=== PATIENT | female | born 1945 | race Caucasian/White ===

== ENCOUNTER 2022-08-27 10:24 | Emergency (ER) | payer MEDICARE ==
[2022-08-27] MEDS ORDERED: Methocarbamol 500 MG Tab PO ONE (11:27)
== END 2022-08-27 12:22 | disposition home or self-care (01) ==
LOC: JP.ED 10:24
DX: M62.830 Muscle spasm of back (principal); I10 Essential (primary) hypertension; Z86.16 Personal history of COVID-19; Z79.899 Other long term (current) drug therapy; Z88.6 Allergy status to analgesic agent; Z88.8 Allergy status to other drugs, medicaments and biological substances
CPT/HCPCS: 99283; A9270

== ENCOUNTER 2023-10-03 08:34 | Emergency (ER) | payer MEDICARE ==
[2023-10-03] MEDS: Acetaminophen 500 MG Tab PO ONE (08:55)
== END 2023-10-03 10:10 | disposition home or self-care (01) ==
LOC: JP.ED 08:34
DX: M17.11 Unilateral primary osteoarthritis, right knee (principal); I10 Essential (primary) hypertension; Z79.899 Other long term (current) drug therapy; Z88.6 Allergy status to analgesic agent
CPT/HCPCS: 73560; 99283; A9270

== ENCOUNTER 2024-03-25 06:55 | Inpatient (IN) | payer MEDICARE ==
[2024-03-25] MEDS ORDERED: Bupivacaine 0.5% 30 ML SDV ONE (07:20)
[2024-03-25] MEDS ORDERED: Glycopyrrolate 0.2 MG/ML 5 ML MDV ONE (07:22)
[2024-03-25] MEDS ORDERED: Neostigmine Methylsulfate 10 MG/10 ML MDV ONE (07:22)
[2024-03-25] MEDS ORDERED: Propofol 200 MG/20 ML SDV ONE (07:22)
[2024-03-25] MEDS ORDERED: Dexamethasone 4 MG/ML SDV ONE (07:22)
[2024-03-25] MEDS ORDERED: Rocuronium 50 MG/5 ML Vial ONE (07:22)
[2024-03-25] MEDS ORDERED: Ondansetron 4 MG/2 ML SDV ONE (07:22)
[2024-03-25] MEDS ORDERED: Succinylcholine 200 MG/10 ML MDV ONE (07:22)
[2024-03-25 07:23] LABS: HEMATOCRIT 28.4 % (34.3-46.0); HEMOGLOBIN 9.6 g/dL (11.2-15.5); MEAN CORPUSCULAR HEMOGLOBIN 37.2 pg (31.6-35.5); MEAN CORPUSCULAR HGB CONC 33.8 g/dL (31.6-35.5); MEAN CORPUSCULAR VOLUME 110.1 fL (81.4-99.0); RED BLOOD CELL COUNT 2.58 M/uL (3.77-5.24)
[2024-03-25] MEDS ORDERED: fentaNYL 250 MCG/5 ML SDV ONE (07:23)
[2024-03-25 07:48] LABS: A/G RATIO 1.1 (1.2-2.2); ALANINE AMINOTRANSFERASE,ALT 18 U/L (12-78); ALKALINE PHOSPHATASE 127 U/L (46-116); ANION GAP 11.5 mmol/L (5.0-14.0); ASPARTATE AMNIOTRANSFERASE,AST 15 U/L (15-37); BILIRUBIN TOTAL 0.6 mg/dL (0.2-1.0); BLOOD UREA NITROGEN,BUN 32 mg/dL (7-18); CARBON DIOXIDE,CO2 25 mmol/L (21-32); CHLORIDE,CL 105 mmol/L (100-108); CREATININE 1.6 mg/dL (0.6-1.0); EST CRCL DRUG DOSING (CG) 24.62 mL/min; ESTIMATED GFR 33 mL/min (>60); GLUCOSE RANDOM 105 mg/dL (74-106); POTASSIUM,K 4.2 mmol/L (3.6-5.2); PROTEIN TOTAL,TP 7.8 g/dL (6.4-8.2); SODIUM,NA 141 mmol/L (140-148)
[2024-03-25] MEDS: Lactated Ringers 1,000 ML IV SCH (08:14)
[2024-03-25] MEDS: Nozin Nasal Sanitizer NASBOTH ONE (08:14)
[2024-03-25] MEDS ORDERED: Ondansetron 4 MG/2 ML SDV IVPUSH PRN (09:24)
[2024-03-25] MEDS ORDERED: Ketorolac 15 MG/ML SDV IVPUSH PRN (09:24)
[2024-03-25] MEDS ORDERED: Albuterol 6.7 GM Inhaler INH PRN (09:28)
[2024-03-25] MEDS ORDERED: ceFAZolin 2 GM in Sodium Chloride 0.9% 50 ML IV SCH (09:30)
[2024-03-25] MEDS: ceFAZolin 2 GM in Premix Bag 1 BAG IV ONE (09:35)
[2024-03-25] MEDS ORDERED: fentaNYL 100 MCG/2 ML SDV ONE (11:20)
[2024-03-25] MEDS: Sodium Chloride 0.9% 1,000 ML IV SCH (13:06)
[2024-03-25] MEDS: Acetaminophen 325 MG Tab PO SCH (13:57)
[2024-03-25] MEDS ORDERED: ceFAZolin 2 GM in Premix Bag 1 BAG IV SCH (18:00)
[2024-03-25] MEDS: ceFAZolin 2 GM in Premix Bag 1 BAG IV SCH (21:01)
[2024-03-25] MEDS: Nozin Nasal Sanitizer NASBOTH SCH (21:01)
[2024-03-26] MEDS: oxyCODONE 5 MG Tab PO PRN ×2 (00:54→11:20)
[2024-03-26 06:34] LABS: MEAN CORPUSCULAR HEMOGLOBIN 35.9 pg (31.6-35.5); MEAN CORPUSCULAR HGB CONC 33.3 g/dL (31.6-35.5); MEAN CORPUSCULAR VOLUME 107.7 fL (81.4-99.0); RED BLOOD CELL COUNT 1.95 M/uL (3.77-5.24)
[2024-03-26] MEDS: SYMBICORT INH SCH (08:33)
[2024-03-26] MEDS: Losartan 50 MG Tab PO SCH (08:35)
[2024-03-26] MEDS: Hydrochlorothiazide 25 MG Tab PO SCH (08:39)
[2024-03-26] MEDS ORDERED: Non-Formulary Medication 1 Each (Budesonide/Formoterol Fumarate [Symbicort 80-4.5 Mcg Inha INH SCH (09:00)
[2024-03-26] MEDS: Docusate Sodium 100 MG Cap PO PRN (15:51)
[2024-03-26] MEDS: HYDROmorphone 2 MG Tab PO PRN (15:51)
[2024-03-27 05:59] LABS: HEMOGLOBIN 8.1 g/dL (11.2-15.5); MEAN CORPUSCULAR HEMOGLOBIN 37.3 pg (31.6-35.5); MEAN CORPUSCULAR HGB CONC 35.2 g/dL (31.6-35.5); RED BLOOD CELL COUNT 2.17 M/uL (3.77-5.24); WHITE BLOOD CELL COUNT,WBC 8.6 K/uL (3.2-11.0)
[2024-04-10] MEDS ORDERED: Cyanocobalamin (Vitamin B12) 1,000 MCG/ML SDV IM SCH (09:00)
== END 2024-03-27 11:06 | disposition home or self-care (01) | DRG 483 ==
LOC: JP.SDS 06:55 → JP.2SS 09:25 → JP.SDS 03-26 14:13
PROVIDERS: ADMIT Specialist; ATTEND Specialist
PROC: 0RRJ0JZ Replacement of Right Shoulder Joint with Synthetic Substitute, Open Approach (ICD-10-PCS; principal; 2024-03-26)
DX: M19.011 Primary osteoarthritis, right shoulder (principal); J44.0 Chronic obstructive pulmonary disease with (acute) lower respiratory infection; I12.9 Hypertensive chronic kidney disease with stage 1 through stage 4 chronic kidney disease, or unspecified chronic kidney disease; N18.31 Chronic kidney disease, stage 3a; D51.0 Vitamin B12 deficiency anemia due to intrinsic factor deficiency; Z86.0100 Personal history of colon polyps, unspecified; Z98.890 Other specified postprocedural states
CPT/HCPCS: 01638-QZ; 36415; 36430; 73020-26-RT; 73020-RT; 80053; 85027; 86850; 86900; 86901; 86920; 86922; 94640; 97110-GO; 97161-GP; 97165-GO; 97535-GO; A9270-GY; C1713; C1776; J0330; J0665; J0690; J1100; J1596; J2405; J2704; J2710; J3010; J3490; J7030; J7120; P9016

== ENCOUNTER 2024-09-26 10:28 | Emergency (ER) | payer MEDICARE | END 2024-09-26 13:22 | disposition home or self-care (01) | LOC: JP.ED 10:28 | DX: J44.1 Chronic obstructive pulmonary disease with (acute) exacerbation (principal); B37.31 Acute candidiasis of vulva and vagina; I10 Essential (primary) hypertension; Z88.6 Allergy status to analgesic agent; Z88.8 Allergy status to other drugs, medicaments and biological substances; Z79.899 Other long term (current) drug therapy; Z79.51 Long term (current) use of inhaled steroids | CPT/HCPCS: 71046; 94640; 99284; 99285; A9270; U0002 ==